=== PATIENT | female | born 1990 | race Caucasian/White ===

== ENCOUNTER 2020-11-24 19:21 | Emergency (ER) | payer BC, SELFPAY ==
[2020-11-24 20:31] VITALS: BP 136/81; PULSE 79; RESP 16; TEMP 37.1; O2SAT 99; BMI 31.3
--- NOTE | 2020-11-24 21:15 | HMH.EDUTC ---
[facility] [place] Clinical Impression: Vomiting and diarrhea Disposition: Home, Self-Care Condition on Discharge: Good Instructions: DI for Vomiting -- Adult Additional Instructions: Drink extra fluids with and between meals. If you have difficulty drinking, try very small amounts of water or suck on ice chips. ? Avoid fruit juices, as these do not replace minerals and can actually increase diarrhea. ? Children and adults can use sports drinks to replenish electrolytes. Younger children and infants should use products formulated for children, like oral rehydration solutions. ? Eat food in small amounts and let your stomach recover. ? Get lots of rest. You may feel tired or weak. ? No greasy or fried foods for the next 24-48 hours BRAT diet Bananas Rice Apples and [place] ? Make sure to drink plenty of liquids ? Return if needed ? Straight to ER if any life threatening symptoms ? Zofran as prescribed Follow up with GI as scheduled Call office and ask to see if they have had any cancelations ? Follow up with family doctor in the next 48-72 hours if no improvement or any worsening of symptoms Referrals: Chloé Pineda APRN [Primary Care Provider] - As needed Forms: Work/School Release Medical Decision Making - Isaac Inquiry Pt receiving controlled substance: No Isaac was queried for this patient: No Vital Signs: 11/24/20 20:31 Temperature 98.7 F Temperature Source Oral Pulse Rate [Left] 79 Respiratory Rate 16 Blood Pressure [Right Arm] 136/81 Blood Pressure Mean [Right Arm] 99 02 Sat by Pulse Oximetry 99 Orders (Tests/Meds): ED MEDICATIONS Generic Name Dose Route Start Last Admin Trade Name Amadouq PRN Reason Stop Dose Admin Promethazine HCl 1 cathleen 11/24/20 21:35 Promethazine 25mg Tablet Take Home Pack (10) PO 11/24/20 21:36 ONCE ONE Medical Decision Narrative: pateint denies [facility] [place] HPI - General Stated complaint: vomiting, diarrhea Time Seen by Provider: 11/24/20 21:15 Mode of Arrival: Ambulatory Source of Information: Patient Limitations: No Limitations Description of Symptoms (Recalled from Triage Doc. by RN): pt c/o n/v/d. this has been ongoing x2 weeks. pt has an appointment with a electric lineman on [place] Symptoms (Recalled from RN notes): No Resp Symptoms (Recalled from RN notes): No Skin Symptoms (Recalled from RN notes): No MS Symptoms (Recalled from RN notes): Yes (n/v/d) Functional Status (Recalled from RN notes): na - History of Present Illness Provider Complaint: Patient states that she has been seen by her PCP and been to [facility] ED twice and is awaiting appointment with Gastro States that she has appointment 12/07 but she is almost out of her nausea medications which hasnt really helped much States that she was wanting to see if there was something else she could take to help - Related Data Allergies Allergy/AdvReac Type Severity Reaction Status Date / Time No Known Allergies Allergy Verified 11/24/20 21:25 - Worker's Comp Is this a Worker's Comp case?: No [facility] History - Hepatitis A Screen Drug use history?: No High risk sexual behaviors?: No History of sexually transmitted infection?: No Currently employed?: No Childcare worker?: No Do you have indoor plumbing?: Yes Do you have electricity?: Yes Attestation statement:: This patient has been screened for Hepatitis A risk factors. I have reviewed the patient's past medical history: Yes ROS Obtained: Yes All systems reviewed & no additional complaints, Yes Systems reviewed as appropriate & no additional complaints - Constitutional Constitutional: Reports system reviewed and no additional complaints, except as docu, Denies body ache, Denies chills, Denies fever(s), Denies headache(s) - ENT Ears, Nose, Mouth, and Throat: Reports system reviewed and no additional complaints, except as docu, Denies dizziness, Denies sinus pain, Denies sinus pressure, Denies sore throat - Cardiovascula
[2020-11-24 21:45] VITALS: BP 136/81; PULSE 79; RESP 16; TEMP 37.1
== END 2020-11-24 21:46 | disposition home or self-care (01) ==
PROVIDERS: Emergency Provider Nurse Practitioner; PCP Family Medicine
DX: R11.0 Nausea (principal); R19.7 Diarrhea, unspecified
CPT/HCPCS: 99202; G0463